=== PATIENT | female | born 1965 | race Caucasian/White ===

== ENCOUNTER 2019-05-18 13:32 | Emergency (ER) | payer SELFPAY ==
[2019-05-18 13:41] VITALS: BP 118/80
== END 2019-05-18 14:50 | disposition left against medical advice (07) ==
LOC: ED 13:32
DX: Z53.21 Procedure and treatment not carried out due to patient leaving prior to being seen by health care provider (principal)
CPT/HCPCS: 99281

== ENCOUNTER 2019-05-24 05:21 | Emergency (ER) | payer SELFPAY ==
[2019-05-24 06:35] VITALS: BP 134/86
--- NOTE | 2019-05-24 06:39 | ED ---
Back Pain - HPI Summary HPI Summary: This patient is a 53-year-old female presenting to the ED with low back pain. She states she has been dealing with this "for years." She continues to ambulate. She states she's been emulating more frequently as she is walking from her hotel to [facility]. She states due to her low back pain, she does not want to walk very far anymore. She states there has been multiple x-rays done which show no acute findings. She believes she may have a slipped disc from years ago. She denies any numbness or tingling. Denies any bladder or bowel dysfunction. There is no tingling into the perineum area. She is also endorsing a small blister to the inside of the left medial dorsum of the foot. She again states this is due to walking. She's been denying any fevers, sweats , chills, abdominal pain, nausea, vomiting, urinary symptoms or back pain. Denies any headaches. She takes no medications as has not used any medications or heat for improvement of her back. She is requesting a bus pass. - History of Current Complaint Chief Complaint: EDBackInjuryPain Stated Complaint: BACK PAIN PER EMS Time Seen by Provider: 05/24/19 06:03 Hx Obtained From: Patient Onset/Duration: Gradual Onset Onset/Duration: Still Present Timing: Intermittent Back Pain Location: Is Discrete @ - low back Severity Initially: Moderate Severity Currently: Moderate Pain Intensity: 8 Pain Scale Used: 0-10 Numeric Character: Aching Aggravating Symptom(s): Movement, Lifting, Bending Alleviating Symptom(s): Rest, Position Associated Signs And Symptoms: Positive: Negative. Negative: Swelling, Redness , Bruising, Weakness, Numbness, Bladder Incontinence, Bowel Incontinence, Weight Loss, Pain with Weight Bearing - Risk Factors AAA Risk Factors: Negative TAD Risk Factors: Negative Cauda Equina Risk Factors: Negative Epidural Abscess Risk Factors: Negative - Allergies/Home Medications Allergies/Adverse Reactions: Allergies Allergy/AdvReac Type Severity Reaction Status Date / Time No Known Allergies Allergy Verified 05/24/19 05:32 PMH/Surg Hx/FS Hx/Imm Hx Previously Healthy: Yes Endocrine/Hematology History: Denies: Hx Diabetes Cardiovascular History: Denies: Hx Hypertension History: Reports: Other Problems/Disorders - ovarian cyst Musculoskeletal History: Reports: Hx Back Problems - slipped discs Sensory History: Denies: Hx Legally Blind, Hx Deafness Opthamlomology History: Denies: Hx Legally Blind Neurological History: Denies: Hx CVA, Hx Migraine Psychiatric History: Denies: Hx Anxiety, Hx Depression - Surgical History Surgery Procedure, Year, and Place: none - Immunization History Hx Pertussis Vaccination: No Immunizations Up to Date: Yes Infectious Disease History: No Infectious Disease History: Denies: Traveled Outside the [place] in Last 30 Days - Family History Known Family History: Negative: Hypertension, Diabetes - Social History Occupation: Unemployed Lives: Alone Alcohol Use: None Hx Substance Use: Yes Substance Use Type: Reports: Marijuana Hx Tobacco Use: Yes Smoking Status (MU): Heavy Every Day Tobacco Smoker Review of Systems Negative: Fever, Chills, Fatigue, Skin Diaphoresis Negative: Palpitations, Chest Pain Negative: Shortness Of Breath, Cough Genitourinary: Negative Positive: no symptoms reported, see HPI Positive: Arthralgia - low back pain. Negative: Myalgia Skin: Negative Neurological: Negative All Other Systems Reviewed And Are Negative: Yes Physical Exam Triage Information Reviewed: Yes Vital Signs On Initial Exam: Initial Vitals Temp Pulse Resp BP Pulse Ox 98.2 F 69 18 117/80 97 05/24/19 05:22 05/24/19 05:22 05/24/19 05:22 05/24/19 05:22 05/24/19 05:22 Vital Signs Reviewed: Yes Appearance: Positive: Well-Appearing, Well-Nourished Skin: Positive: Warm, Skin Color Reflects Adequate Perfusion Head/Face: Positive: Normal Head/Face Inspection Eyes: Positive: EOMI, Conjunctiva Clear Neck: Positive: Supple, No Lymphadenopathy Respiratory/Lung Sounds: Positive: Clear to Auscultation, Breath Sounds Present Cardiovascular: Positive: RRR, Pulses are Symmetrical in both Upper and Lower Extremities Musculoskeletal: Positive: Pain @ - low back pain Neurological: Positive: Sensory/Motor Intact, Alert, Oriented to Person Place, Time, Speech Normal Psychiatric: Positive: Affect/Mood Appropriate Diagnostics - Vital Signs Vital Signs Temp Pulse Resp BP Pulse Ox 05/24/19 05:22 98.2 F 69 18 117/80 97 - Laboratory Lab Statement: Any lab studies that have been ordered have been reviewed, and results considered in the medical decision making process. Back Pain Course/Dx - Course Course Of Treatment: During his course of treatment, the patient is evaluated for acute low back pain. There is no signs of trauma, no step-off noted. Patient is able to flex and extend and rotate about the hips. No evidence of acute injury. No bladder or bowel dysfunction. She denies any tingling to the bilateral lower extremities. Patient ambulating well and there is no obvious signs keep disturbance. She is requesting a bus pass at this time. She will be diagnosed with back pain. Encouraged heat and ibuprofen. - Diagnoses Differential Diagnosis/HQI/PQRI: Positive: Strain, Sprain Provider Diagnoses: Low back pain Discharge ED - Sign-Out/Discharge Documenting (check all that apply): Patient Departure Patient Received Moderate/Deep Sedation with Procedure: No - Discharge Plan Condition: Stable Disposition: HOME Referrals: No Primary Care Phys,NOPCP [Primary Care Provider] - - Billing Disposition and Condition Condition: STABLE Disposition: Home
== END 2019-05-24 06:34 | disposition home or self-care (01) ==
LOC: ED 05:21
DX: M54.5 Low back pain (principal); F17.200 Nicotine dependence, unspecified, uncomplicated
CPT/HCPCS: 99282

== ENCOUNTER 2019-06-05 14:54 | Emergency (ER) | payer SELFPAY ==
[2019-06-05 16:09] VITALS: BP 120/88
--- NOTE | 2019-06-05 17:22 | ED ---
Throat Pain/Nasal Congestion - HPI Summary HPI Summary: This patient is a 53 year old F presenting to [facility] with a chief complaint fear that bed bugs are in her right ear since 06/03/19. Patient states she just moved her from [place] and has been staying at the [facility] in [place]. Patient states that she has seen bed bugs crawling around since "05/30/19" per gas line repairer. Patient also states that she has proof of the bedbugs with pictures on her phone. Patient states that this is causing her to be anxious. Patient states she can hear the bedbugs crawling around in her ear. Patient was previously placed in mental health unit in [place]. Patient states that she has an appointment with [facility] to get "everything" figured out, including medications. Patient denies SI because she "loves herself too much". Denies HI. Pt is seen and examined in the triage room due to high pt volume in the ED. Pt agrees to evaluation in this setting. Allergies Allergy/AdvReac Type Severity Reaction Status Date / Time No Known Allergies Allergy Verified 06/05/19 15:25 Home Medications Medication Instructions Recorded Confirmed Type Cyclobenzaprine TAB* [Flexeril 10 10 mg PO TID PRN #20 tab 05/03/19 05/24/19 Rx MG TAB*] - History of Current Complaint Chief Complaint: EDGeneral Time Seen by Provider: 06/05/19 16:01 Hx Obtained From: Patient Onset/Duration: Sudden Onset, Still Present Severity: Mild Associated Signs And Symptoms: Positive: FB Sensation Cough: None Related History: Other (Noted In Comments) - pt fears that bedbugs are in her right ear, after staying in hotel room that she states has bedbugs - Allergies/Home Medications Allergies/Adverse Reactions: Allergies Allergy/AdvReac Type Severity Reaction Status Date / Time No Known Allergies Allergy Verified 06/05/19 15:25 PMH/Surg Hx/FS Hx/Imm Hx Previously Healthy: No Endocrine/Hematology History: Denies: Hx Diabetes Cardiovascular History: Denies: Hx Hypertension History: Reports: Other Problems/Disorders - ovarian cyst Musculoskeletal History: Reports: Hx Back Problems - slipped discs Sensory History: Denies: Hx Legally Blind Opthamlomology History: Denies: Hx Legally Blind Neurological History: Denies: Hx CVA, Hx Migraine Psychiatric History: Reports: Hx Anxiety, Hx Panic Disorder, Hx Inpatient Treatment - in [place] per pt Denies: Hx Depression - Surgical History Surgical History: None Surgery Procedure, Year, and Place: none Infectious Disease History: No Infectious Disease History: Denies: Traveled Outside the [place] in Last 30 Days - Family History Known Family History: Negative: Hypertension, Diabetes - Social History Alcohol Use: None Hx Substance Use: Yes Substance Use Type: Reports: Marijuana Hx Tobacco Use: Yes Smoking Status (MU): Heavy Every Day Tobacco Smoker Review of Systems Negative: Fever Positive: Other - complains of bed bugs in ear Cardiovascular: Negative Respiratory: Negative Gastrointestinal: Negative Positive: no symptoms reported Musculoskeletal: Negative Skin: Negative Neurological: Negative Positive: Anxious All Other Systems Reviewed And Are Negative: Yes Physical Exam - Summary Physical Exam Summary: Appearance: anxious appearing, no acute pain distress, well-nourished Skin: Warm, color reflects adequate perfusion, dry, no evidence of insect bites on skin Head: Normal Head/Face inspection, atraumatic Eyes: Conjunctiva clear ENT: Normal inspection, no abrasions or bites noted near or in ear canal bilaterally, bilateral TM's clear, Pharynx clear Neck: Supple, no nodes, no JVD Respiratory: Lungs clear, normal breath sounds, no respiratory distress Cardio: RRR, No murmur, pulses normal, brisk capillary refill Musculoskeletal: Strength Intact/ROM intact, no calf tenderness, no edema. Psychological: appears anxious, jittery and has pressured speech; denies SI/HI Neuro: Alert, muscle tone normal, no focal deficit Triage Information Reviewed: Yes Vital Signs On Initial Exam: Initial Vitals Temp Pulse Resp BP Pulse Ox 98.5 F 78 16 123/95 99 06/05/19 15:18 06/05/19 15:18 06/05/19 15:18 06/05/19 15:18 06/05/19 15:18 Vital Signs Reviewed: Yes Diagnostics - Vital Signs Vital Signs Temp Pulse Resp BP Pulse Ox 06/05/19 16:08 98.5 F 75 16 120/88 99 06/05/19 15:18 98.5 F 78 16 123/95 99 - Laboratory Lab Statement: Any lab studies that have been ordered have been reviewed, and results considered in the medical decision making process. EENT Course/Dx - Course Course Of Treatment: This patient is a 53 year old F presenting to [facility] with a chief complaint of fear of bed bugs in right ear since 06/03/19. Pt's exam did not show evidence of bedbugs or any FB in her ears. Pt states she is anxious and has a soon appt with [facility] to assist her medications and treatment for anxiety. Pt has just relocated from [place]. Pt denies SI/HI. Patient will be discharged. The patient is agreeable with this plan. - Differential Diagnoses Differential Diagnoses: Otitis Externa, Otitis Media, Other - foreign body in ear - Diagnoses Provider Diagnoses: Encounter for medical screening examination, Discomfort of right ear Is Visit Related: No Discharge ED - Sign-Out/Discharge Documenting (check all that apply): Patient Departure - discharge Patient Received Moderate/Deep Sedation with Procedure: No - Discharge Plan Condition: Stable Disposition: HOME Patient Education Materials: Bed Bugs (ED), Panic Attack (ED) Referrals: [facility] [Outside] - 1 Day (as needed ) Additional Instructions: Dr. Lawrence looked in your both of your external ears and did not see bedbugs. We have given you the instructions about bedbugs so you can have more information about them, but we did not see bedbugs on you today. You also stated that you have had panic attacks and that you are getting established with [facility] and that you already have an appointment. We have given you more information about panic attacks that you may review also. Please return to the ER if you have any new or worsening symptoms. - Billing Disposition and Condition Condition: STABLE Disposition: Home - Attestation Statements Document Initiated by Deneen: Yes Documenting Pbibe: Tatiana Lerner Provider For Whom Deneen is Documenting (Include Credential): Dr. Carmen Lawrence MD Scribe Attestation: Tatiana Luna scribed for Dr. Carmen Lawrence MD on 06/06/19 at 0147. Scribe Documentation Reviewed: Yes Provider Attestation: The documentation as recorded by the Tatiana martin accurately reflects the service I personally performed and the decisions made by me, Dr. Carmen Lawrence MD Status of Scribe Document: Viewed
== END 2019-06-05 16:10 | disposition home or self-care (01) ==
LOC: ED 14:54
DX: H92.01 Otalgia, right ear (principal); F41.9 Anxiety disorder, unspecified; F17.200 Nicotine dependence, unspecified, uncomplicated
CPT/HCPCS: 99281